=== PATIENT | female | born 1970 | race African-American/Black ===

== ENCOUNTER 2023-09-05 13:22 | Emergency (ER) | payer OTHER ==
[~2023-09-05] VITALS: Ht 172.7 cm; Wt 102.1 kg
[2023-09-05] MEDS ORDERED: ATOR10TA PO (13:42)
[2023-09-05] MEDS ORDERED: VERA240C2 PO (13:42)
[2023-09-05] MEDS ORDERED: ALBU0.63 IH (13:42)
[2023-09-05] MEDS ORDERED: ALBUTEROL SULFATE 2.5 MG/3 ML NEBU NEB ONE (15:00)
[2023-09-05] MEDS ORDERED: ALBUTEROL SULFATE 2.5 MG/3 ML NEBU ONE (15:01)
[2023-09-05 15:10] VITALS: O2SAT 96
[2023-09-05] MEDS ORDERED: [UNRECOGNIZED DRUG - CODE] PO (15:29)
[2023-09-05 15:33] VITALS: BP 140/73; O2SAT 96
[2023-09-05] MEDS ORDERED: NAPR-1164 PO (18:07)
[2023-09-05] MEDS ORDERED: MELO-107 PO (18:08)
== END 2023-09-05 15:34 | disposition home or self-care (01) ==
LOC: ER 13:22
DX: M54.16 Radiculopathy, lumbar region (principal); J45.909 Unspecified asthma, uncomplicated; E78.5 Hyperlipidemia, unspecified; Z79.899 Other long term (current) drug therapy
CPT/HCPCS: 72131; A4606; A4663